=== PATIENT | male | born 1975 | race Two or more races ===

== ENCOUNTER 2018-08-22 18:15 | Emergency (ER) | payer OTHER ==
[2018-08-22] MEDS ORDERED: DIAZEPAM INJ 10 MG/2 ML DISP.SYRIN IM ONE (21:10)
[2018-08-22] MEDS ORDERED: DEXAMETHASONE SOD PHOS INJ 10 MG/1 ML VIAL IM ONE (21:10)
--- NOTE | 2018-08-22 21:16 | ER Document Report ---
HPI - HPI Patient complains to provider of: lower back pain Time Seen by Provider: 08/22/18 20:37 Pain Level: 4 Context: The patient is a 42-year-old male that comes to the emergency department for chief complaint of lower back pain. He states he woke up with the pain this morning, it worsened throughout the day, he states now it is painful to change positions, sit, or twist. Pain is in both sides of his lower back, slightly worse on the right. He cannot recall an injury, he denies a fall, he denies numbness, incontinence, fever/chills. He denies ever using IV drugs. Past medical history of GERD, hyperlipidemia, anxiety/depression. He is medicated for all of these. Past Medical History - General Information source: Patient - Social History Smoking Status: Current Every Day Smoker Frequency of alcohol use: None Drug Abuse: None Lives with: Family Family History: Reviewed & Not Pertinent Patient has suicidal ideation: No Patient has homicidal ideation: No - Past Medical History Cardiac Medical History: Reports: Hx Hypercholesterolemia Renal/ Medical History: Denies: Hx Peritoneal Dialysis GI Medical History: Reports: Hx Gastroesophageal Reflux Disease Psychiatric Medical History: Reports: Hx Depression Past Surgical History: Reports: Hx Orthopedic Surgery - bilateral knees - Immunizations Immunizations up to date: Yes Hx Diphtheria, Pertussis, Tetanus Vaccination: Yes Vertical Provider Document - CONSTITUTIONAL General Appearance: WD/WN, Mild Distress - Patient moves with obvious discomfort but otherwise is well-appearing. - INFECTION CONTROL TRAVEL OUTSIDE OF THE [place] IN LAST 30 DAYS: No - HEENT HEENT: Atraumatic, Normal ENT Exam, Normocephalic - NECK Neck: Normal Inspection - RESPIRATORY Respiratory: Breath Sounds Normal, No Respiratory Distress - CARDIOVASCULAR Cardiovascular: Regular Rate, Regular Rhythm - GI/ABDOMEN Gastrointestinal: Abdomen Soft, Abdomen Non-Tender - BACK Back: negative: Normal Inspection - Tender in the bilateral paralumbar musculature, worse on the right. Positive axial loading. Positive straight leg raise. No midline tenderness, no saddle anesthesia, no signs of trauma. Normal upper and lower extremity range of motion, normal strength, normal distal neurovascular exam. - MUSCULOSKELETAL/EXTREMETIES Musculoskeletal/Extremeties: MAEW, FROM, Non-Tender Course - Re-evaluation Re-evalutation: Patient uncomfortable sitting, markable standing or lying down. He has positive axial loading. Positive straight leg raise especially on the right. No neurological deficits. No fever. No history of IV drug abuse. No history of back surgery or back injury. Vital signs unremarkable. Physical examination unremarkable otherwise. Based on his evaluation I suspect a herniated disc with secondary muscle spasm and sciatica. I discussed this with patient. Patient will be provided with work-release, muscle relaxer, anti-inflammatory. Discussed follow-up instructions and return precautions in detail. Patient states understanding and agreement. - Vital Signs Vital signs: Temp Pulse Resp BP Pulse Ox 98.4 F 103 H 16 160/91 H 96 08/22/18 18:24 08/22/18 18:24 08/22/18 18:24 08/22/18 18:24 08/22/18 18:24 Discharge - Discharge Clinical Impression: Lower back pain Qualifiers: Chronicity: acute Back pain laterality: bilateral Sciatica presence: with sciatica Sciatica laterality: sciatica of right side Qualified Code(s): M54.41 - Lumbago with sciatica, right side Condition: Stable Disposition: HOME, SELF-CARE Additional Instructions: Your evaluation is most consistent with a herniated disc causing sciatica. This takes time to resolve. Avoid lifting or twisting, apply heat to your lower back, take the diazepam as prescribed, take [id number] medication such as Tylenol or ibuprofen. Follow-up with primary care for additional evaluation management. Return if you worsen including numbness, inability to control your bowels, inability to urinate, fever, severe worsening pain, or any other concerning or worsening symptoms. Prescriptions: Diazepam [Valium 5 mg Tablet] 1 - 2 tab PO TID PRN #12 tablet PRN Reason: Forms: Return to Work Referrals: [facility] [[facility]] - Follow up as needed
[2018-08-22 21:41] VITALS: BP 126/73
== END 2018-08-22 21:40 | disposition home or self-care (01) ==
LOC: ER 18:15
DX: M54.41 Lumbago with sciatica, right side (principal); F17.200 Nicotine dependence, unspecified, uncomplicated; E78.00 Pure hypercholesterolemia, unspecified
CPT/HCPCS: 99283; 96372; J3360; J1100

== ENCOUNTER 2018-08-24 22:32 | Emergency (ER) | payer OTHER ==
--- NOTE | 2018-08-24 23:41 | ER Document Report ---
ED Medical Screen (RME) - General Chief Complaint: Shortness Of Breath Stated Complaint: SHORTNESS OF BREATH Time Seen by Provider: 08/24/18 23:35 Primary Care Provider: VAL ASIF [Primary Care Provider] - Follow up as needed Notes: 42-year-old gentleman coming in today with profound back pain and shortness of breath. He was seen here earlier in the week having back pain and shortness of breath. Told he had a pinched nerve or herniated disc in his back. Sent home with Valium. Taken medication as directed. Continues to be more profoundly short of breath. Unable to speak full sentences without getting short of breath. Patient has done extensive transatlantic travel as well as lots of scuba diving and his doctor sent him in here to rule out a pulmonary embolism.. I have treated and performed a rapid initial assessment of this patient. A comprehensive ED assessment and evaluation of the patient, analysis of test results and completion of medical decision making process will be conducted by additional ED providers. PHYSICAL EXAMINATION: GENERAL: Moderate distress, easily winded LUNGS: Breath sounds clear to auscultation bilaterally and equal. No wheezes rales or rhonchi. HEART: Regular rate and rhythm without murmurs, rubs, gallops. Extremities: No cyanosis, clubbing, or edema b/l. NEUROLOGICAL: Normal speech, normal gait. PSYCH: Normal mood, normal affect. TRAVEL OUTSIDE OF THE [place] IN LAST 30 DAYS: Yes - 10 days ago COUNTRY TRAVELED TO/FROM: [place] - Related Data Allergies/Adverse Reactions: No Known Allergies Allergy (Unverified 08/22/18 18:19) Past Medical History - Past Medical History Cardiac Medical History: Reports: Hx Hypercholesterolemia Renal/ Medical History: Denies: Hx Peritoneal Dialysis GI Medical History: Reports: Hx Gastroesophageal Reflux Disease Psychiatric Medical History: Reports: Hx Depression Past Surgical History: Reports: Hx Orthopedic Surgery - bilateral knees - Immunizations Immunizations up to date: Yes Hx Diphtheria, Pertussis, Tetanus Vaccination: Yes Physical Exam - Vital signs Vitals: Temp Pulse Resp BP Pulse Ox 98.7 F 85 20 138/94 H 99 08/24/18 22:44 08/24/18 22:44 08/24/18 22:44 08/24/18 22:44 08/24/18 22:44 Course - Vital Signs Vital signs: Temp Pulse Resp BP Pulse Ox 98.7 F 85 20 138/94 H 99 08/24/18 22:44 08/24/18 22:44 08/24/18 22:44 08/24/18 22:44 08/24/18 22:44 Doctor's Discharge - Discharge Referrals: [facility] [[facility]] - Follow up as needed
--- NOTE | 2018-08-24 23:42 | RADIOLOGY REPORT (SQ) ---
CLINICAL HISTORY: dyspnea COMPARISON: None. TECHNIQUE: XR CHEST 2 VIEWS 08/24/2018 12:00 AM CDT FINDINGS: Cardiac silhouette is normal in size. Lungs are clear without consolidation, atelectasis, mass or edema. There is no pleural effusion. There is no pneumothorax. There are no acute osseous findings. IMPRESSION: Clear lungs.
--- NOTE | 2018-08-25 00:28 | ER Document Report ---
ED Respiratory Problem - General Chief Complaint: Shortness Of Breath Stated Complaint: SHORTNESS OF BREATH Time Seen by Provider: 08/24/18 23:35 Primary Care Provider: LAYA,VAL [Primary Care Provider] - Follow up as needed Notes: 42-year-old male presents to the ER complaining of shortness of breath. He was seen here earlier in the week having back pain on Monday. Told he had a pinched nerve or herniated disc in his back. Continues to be more profoundly short of breath. Unable to speak full sentences without getting short of breath. Patient has done extensive transatlantic travel as well as lots of sc uba diving and his doctor sent him in here to rule out a pulmonary embolism --the patient with the [place] 10 days ago. However he did not scuba dive while he was over there his last scuba diving trip was in March. Patient denies calf pain or leg swelling. He denies chest pain. States he is short of breath feels as if he cannot take a deep breath. TRAVEL OUTSIDE OF THE [place] IN LAST 30 DAYS: Yes - 10 days ago COUNTRY TRAVELED TO/FROM: [place] - Related Data Allergies/Adverse Reactions: No Known Allergies Allergy (Unverified 08/22/18 18:19) Past Medical History - Social History Smoking Status: Current Every Day Smoker Family History: Reviewed & Not Pertinent - Past Medical History Cardiac Medical History: Reports: Hx Hypercholesterolemia Renal/ Medical History: Denies: Hx Peritoneal Dialysis GI Medical History: Reports: Hx Gastroesophageal Reflux Disease Psychiatric Medical History: Reports: Hx Depression Past Surgical History: Reports: Hx Orthopedic Surgery - bilateral knees - Immunizations Immunizations up to date: Yes Hx Diphtheria, Pertussis, Tetanus Vaccination: Yes Review of Systems - Review of Systems Constitutional: denies: Chills, Fever EENT: denies: Throat pain Respiratory: Short of breath. denies: Cough, Hurts to breathe, Hemoptysis Gastrointestinal: denies: Abdominal pain, Nausea, Vomiting -: Yes All other systems reviewed and negative Physical Exam - Vital signs Vitals: Temp Pulse Resp BP Pulse Ox 98.7 F 85 20 138/94 H 99 08/24/18 22:44 08/24/18 22:44 08/24/18 22:44 08/24/18 22:44 08/24/18 22:44 - Notes Notes: GENERAL_APPEARANCE: well_nourished, alert, cooperative VITALS: reviewed, see vital signs table. HEAD: no_swelling\tenderness on the head. EYES: PERRL, EOMI, conjunctiva_clear. NOSE: no_nasal_discharge. MOUTH: (-)decreased moisture. THROAT: no_tonsilar_inflammation, no_airway_obstruction. no_lymphadenopathy NECK: supple, no_neck_tenderness, (-)thyromegaly. BACK: no_back_tenderness. CHEST_WALL: no_chest_tenderness. LUNGS: no_wheezing, no_rales, no_rhonchi, (-)accessory muscle use, good air exchange bilateral. HEART: normal_rate, normal_rhythm, normal_S1, normal_S2, (-)S3, (-)S4, no_murmur, no_rub. ABDOMEN: normal_BS, soft, no_abd_tenderness, (-)guarding, (-)rebound, no_organomegaly, no_abd_masses. EXTREMITIES: good pulses in all_extremities, no_swelling\tenderness in the extremities, no_edema. SKIN: warm, dry, good_color, no_rash. MENTAL_STATUS: speech_clear, oriented_X_3, normal_affect, responds_appropriately to questions. Course - Re-evaluation Re-evalutation: 08/25/18 00:27 Patient presents after being sent from the [place] for out pulmonary embolism. Christina fleming went to [place] 10 days ago. He usually scuba dives but has not scuba dive since March. Patient is 100% on room air with no tachycardia or tachypnea. We will get a CTA of the chest since his doctor at the [place] is concerned and he complains of subjective dyspnea. He has no calf pain or leg swelling otherwise his exam is normal his lungs are clear. 08/25/18 01:25 Chest x-ray is negative CT of the chest shows no PE or dissection and clear lung parenchyma. The patient's lungs are clear on reexamination. Sats are 99 to 100% on room air no tachycardia no tachypnea. The patient states that when he goes to take a deep breath in the room he just does not feel that he can do it all the time he is taking what appears to be significant adequate deep breaths within the room when I reevaluated him. Again there is no abnormalities in his vital signs. No abnormalities in his lung sounds no abnormalities on his imaging of his chest with CT angiography. EKG and troponin are negative. The white count is mildly elevated. The patient denied any significant infectious etiology but he states he coughs occasionally when he because of the smoking. He said he was worried because his smoking may be affecting his lungs. The patient has no fever here. Denies hematuria or dysuria denies meningismus. I encouraged him to follow back up with his doctor. The leukocytosis could be stress response it is difficult to tell however I see nothing clinically that would suggest a overwhelming infection. I spoke with him about this he will return if he has any additional problems he will follow-up with his doctor. - Vital Signs Vital signs: Temp Pulse Resp BP Pulse Ox 98.7 F 85 19 120/81 98 08/24/18 22:44 08/24/18 22:44 08/25/18 01:01 08/25/18 01:00 08/25/18 01:01 - Laboratory Result Diagrams: 08/25/18 00:15 08/25/18 00:15 Laboratory results interpreted by me: 08/25/18 08/25/18 00:15 00:15 WBC 20.3 H Band Neutrophils % 1 L Abs Neuts (Manual) 15.2 H Sodium 145.1 H Chloride 109 H Glucose 146 H AST 13 L - Diagnostic Test Radiology reviewed: Reports reviewed Radiology results interpreted by me: 08/25/18 01:25 Chest X-Ray 08/24/18 00:00 IMPRESSION: Clear lungs. Chest/Abdomen CTA 08/24/18 23:36 IMPRESSION: No acute pulmonary embolism. - EKG Interpretation by [place] EKG shows normal: Sinus rhythm Rate: Normal Discharge - Discharge Clinical Impression: Dyspnea Qualifiers: Dyspnea type: unspecified Qualified Code(s): R06.00 - Dyspnea, unspecified Condition: Good Disposition: HOME, SELF-CARE Instructions: Dyspnea, Nonspecific ([facility]) Additional Instructions: Please follow-up with your doctor for further care. Your CT scan did not show any pulmonary embolisms or dissections or lung abnormalities. You may need pulmonary function tests to further differentiate your lung capacity. This can be made through the [facility]. Another finding was that you are mildly dehydrated and your white blood cell count is elevated. There is no signs of any pneumonia or other sign of infection however if you start to notice any signs of infection fever productive cough trouble urinating please return to the ER soon as possible. [facility]errals: [facility] [Primary Care [facility]] - Follow up as needed
[2018-08-25 00:37] LABS: INTERNATIONAL RATION (INR) 0.94; PROTHROMBIN TIME 13.1 SEC (11.4-15.4)
[2018-08-25 00:38] LABS: PARTIAL THROMBOPLASTIN TIME 28.8 SEC (23.5-35.8)
[2018-08-25 00:40] LABS: HEMATOCRIT 41.1 % (37.9-51.0); HEMOGLOBIN 13.9 g/dL (13.5-17.0); MEAN CORPUSCULAR HEMOGLOBIN 31.9 pg (27.0-33.4); MEAN CORPUSCULAR HGB CONC 33.8 g/dL (32.0-36.0); MEAN CORPUSCULAR VOLUME 94 fl (80-97); PLATELET COUNT 331 10^3/uL (150-450); RED BLOOD COUNT 4.36 10^6/uL (4.35-5.55); RED CELL DISTRIBUTION WIDTH 12.6 % (11.5-14.0); WHITE BLOOD COUNT 20.3 10^3/uL (4.0-10.5)
[2018-08-25 00:56] LABS: ALANINE AMINOTRANSFERASE 35 U/L (21-72); ALBUMIN 3.6 g/dL (3.5-5.0); ALKALINE PHOSPHATASE 83 U/L (38-126); ANION GAP 11 (5-19); ASPARTATE AMINO TRANSFERASE 13 U/L (17-59); BILIRUBIN,DIRECT 0.2 mg/dL (0.0-0.4); BILIRUBIN,TOTAL 0.4 mg/dL (0.2-1.3); BLOOD UREA NITROGEN 16 mg/dL (7-20); CALCIUM 9.4 mg/dL (8.4-10.2); CARBON DIOXIDE 25 mmol/L (22-30); CHLORIDE 109 mmol/L (98-107); CREATINE KINASE 67 U/L (55-170); GLUCOSE 146 mg/dL (75-110); POTASSIUM 3.8 mmol/L (3.6-5.0); SODIUM 145.1 mmol/L (137-145); TOTAL PROTEIN 6.4 g/dL (6.3-8.2)
[2018-08-25 01:06] LABS: CREATINE KINASE MB 0.32 ng/mL (<4.55)
[2018-08-25 01:08] LABS: TROPONIN I < 0.012 ng/mL
--- NOTE | 2018-08-25 01:10 | RADIOLOGY REPORT (SQ) ---
CT CHEST ANGIOGRAPHY WITHOUT THEN WITH IV CONTRAST HISTORY: Shortness of breath. COMPARISON: None. TECHNIQUE: CT angiogram of the chest with IV contrast. 3-D MIP images were obtained in coronal and sagittal reconstructions. This exam was performed according to our departmental dose-optimization program, which includes automated exposure control, adjustment of the mA and/or kV according to patient size and/or use of iterative reconstruction technique. FINDINGS: No filling defects are identified in the pulmonary trunk, main left and right pulmonary arteries, or the segmental branches. No aortic aneurysm or dissection is seen. The thyroid gland is normal. No mediastinal or hilar adenopathy. The heart size is normal without pericardial effusion. No consolidation, pleural effusion, or pneumothorax is identified. The visualized upper abdomen demonstrates no acute findings. No acute osseous findings are seen. IMPRESSION: No acute pulmonary embolism.
[2018-08-25 01:15] LABS: ABSOLUTE LYMPHOCYTES# (MANUAL) 3.9 10^3/uL (0.5-4.7); ABSOLUTE MONOCYTES # (MANUAL) 1.2 10^3/uL (0.1-1.4); ABSOLUTE NEUTROPHILS# (MANUAL) 15.2 10^3/uL (1.7-8.2); BAND NEUTROPHILS % (MANUAL) 1 % (3-5); BASOPHILS % (MANUAL) 0 % (0-2); EOSINOPHILS % (MANUAL) 0 % (0-6); LYMPHOCYTES % (MANUAL) 19 % (13-45); MONOCYTES % (MANUAL) 6 % (3-13); PLATELET COMMENT ADEQUATE; SEGMENTED NEUTROPHILS % (MAN) 74 % (42-78); TOTAL CELLS COUNTED 100
[2018-08-25 01:16] LABS: RBC MORPHOLOGY COMMENT NORMO-CYTIC/CHROMIC
[2018-08-25 01:56] VITALS: BP 128/87
--- NOTE | 2018-08-25 08:31 | EKG REPORT ---
SEVERITY:- NORMAL ECG - SINUS RHYTHM : Confirmed by: Trey Acevedo MD 25-Aug-2018 08:30:42
== END 2018-08-25 01:56 | disposition home or self-care (01) ==
LOC: ER 22:32
DX: R06.00 Dyspnea, unspecified (principal); F17.200 Nicotine dependence, unspecified, uncomplicated
CPT/HCPCS: 36415; 71046; 71275; 80053; 82550; 82553; 84484; 85025; 85610; 85730; 93005; 93010; 99285

== ENCOUNTER → 2019-04-12 | Outpatient (CLI) | payer OTHER ==
--- NOTE | 2019-04-12 10:55 | RADIOLOGY REPORT (SQ) ---
EXAM DESCRIPTION: CT CHEST WITHOUT COMPLETED DATE/TIME: 04/12/2019 10:44 am REASON FOR STUDY: R91.8 OTHER NONSPECIFIC ABNORMAL FINDING OF LUNG FIELD R91.8 OTHER NONSPECIFIC AB NORMAL FINDING OF LUNG FIELD COMPARISON: CT chest dated 08/25/2018 TECHNIQUE: CT scan performed of the chest without intravenous contrast. Images reviewed with lung, soft tissue and bone windows. Reconstructed coronal and sagittal MPR images reviewed. All images st ored on PACS. All CT scanners at this facility use dose modulation, iterative reconstruction, and/or weight based d osing when appropriate to reduce radiation dose to as low as reasonably achievable (ALARA). [facility]: Dose Right [facility]: CareDose [facility]: Dose Right [facility]: Teradose 4D [facility]: Shook RADIATION DOSE: CT Rad equipment meets quality standard of care and radiation dose reduction techniq ues were employed. CTDIvol: 13.7 mGy. DLP: 520 mGy-cm. mGy. LIMITATIONS: No technical limitations. FINDINGS: LUNGS AND PLEURA: No masses, infiltrates, or pneumothorax. No pleural effusions or pleura l calcifications. HILAR AND MEDIASTINAL STRUCTURES: No identified masses or abnormal nodes. No obvious aneurysm. HEART AND VASCULAR STRUCTURES: No aneurysm. No pericardial effusion. UPPER ABDOMEN: There is fatty infiltration of the liver. THYROID AND OTHER SOFT TISSUES: No masses. No adenopathy. BONES: No significant finding. HARDWARE: None in the chest. OTHER: No other significant findings. IMPRESSION: NO SIGNIFICANT FINDING ON NON-CONTRASTED CHEST CT. TECHNICAL DOCUMENTATION: JOB ID: [id number] Quality ID # [id number]: Final reports with documentation of one or more dose reduction techniques (e.g., Au tomated exposure control, adjustment of the mA and/or kV according to patient size, use of iterative reconstruction technique) 2010 [employer]- All Rights Reserved Reading location - IP/workstation name: [email or web address]
== END ==
LOC: RAD 10:32
PROVIDERS: ATTEND Internal Medicine Critical Care Medicine
DX: R91.8 Other nonspecific abnormal finding of lung field (principal); R91.1 Solitary pulmonary nodule; R05 Cough
CPT/HCPCS: 71250